=== PATIENT | female | born 1985 | race Caucasian/White ===

== ENCOUNTER 2016-12-29 08:31 | Emergency (ER) | payer BC, OTHER ==
[~2016-12-29] VITALS: Ht 165.1 cm; Wt 46.7 kg
[~2016-12-29 08:31] MED LIST: BENADRYL25 MG PO; CIPROFLOXACIN500 M1 PO; DOXYCYCLINE 10100 M1 PO; GLYCOLAX POWDER17 G1 PO; HYDROCODONE-AP1 EAC6 PO; KETOROLAC30 MG/1 M5 IV; LEVAQUIN 5500 MG/101 IVPB; NAPROSYN500 MG PO; NOHOMEMEDICATIONS; NORCO 5-325 TA1 EACH PO; ONDANSETRON HCL4 M1 IV; PHENERGAN 25 MG25 M1 PO; SENNA S TABLET1 EACH PO
[2016-12-29 08:59] LABS: ABSOLUTE NEUTROPHILS 2.5 thou/uL (1.4-8.2); BASOPHILS 0.9 % (0.0-2.0); EOSINOPHILS 1.9 % (0.0-3.0); LYMPHOCYTES 37.5 % (24.0-44.0); MCH 32.2 pg (26.0-34.0); MCHC 34.1 g/dL (28.0-37.0); MCV 94.3 fL (80.0-100.0); MONOCYTES 5.9 % (1.0-8.0); PLATELET COUNT 198 thou/uL (150-400); POLYS 53.8 % (36.0-66.0); RBC 4.34 mil/uL (4.20-5.00); RDW 12.9 % (10.5-14.5); WBC 4.7 thou/uL (4.0-11.0)
[2016-12-29 09:00] LABS: URINE BILIRUBIN NEGATIVE (Negative); URINE BLOOD NEGATIVE (Negative); URINE COLOR YELLOW; URINE GLUCOSE-RANDOM* NEGATIVE (Negative); URINE KETONES NEGATIVE (Negative); URINE LEUKOCYTES-REFLEX 1+ (Negative); URINE PROTEIN (DIPSTICK) NEGATIVE (Negative); URINE SPECIFIC GRAVITY 1.015 (1.003-1.035); URINE UROBILINOGEN 0.2 E.U./dl (0.2-1.0)
[2016-12-29 09:03] LABS: MANUAL DIFF NO
[2016-12-29 09:07] LABS: CALCIUM 8.8 mg/dL (8.5-10.1); CREATININE 0.8 mg/dL (0.6-1.0); POTASSIUM 3.7 mmol/L (3.5-5.1)
[2016-12-29 09:11] LABS: ALBUMIN 4.4 g/dL (3.4-5.0); DIRECT BILIRUBIN 0.1 mg/dL (<0.1-0.3); TOTAL BILIRUBIN 0.5 mg/dL (<0.1-1.0); TOTAL PROTEIN 7.4 g/dL (6.4-8.2)
[2016-12-29 10:31] LABS: CASTS None Seen /LPF (None Seen); CRYSTALS None Seen /LPF (None Seen); SQUAMOUS >10 Many /LPF (0-3)
[2016-12-29 10:32] LABS: URINE RBC None Seen /HPF (0-2)
[2016-12-29] MEDS ORDERED: NORCO 5-325 TA1 EACH PO (11:39)
[2016-12-29] MEDS ORDERED: MACROBID 100 M100 M1 PO (11:41)
== END 2016-12-29 12:53 | disposition home or self-care (01) ==
LOC: ER 08:31
PROVIDERS: Emergency Medicine
DX: N39.0 Urinary tract infection, site not specified (principal); Z88.0 Allergy status to penicillin; Z88.5 Allergy status to narcotic agent